=== PATIENT | female | born 1985 | race Caucasian/White ===

== ENCOUNTER 2022-11-01 13:55 | Emergency (ER) | payer OTHER ==
[~2022-11-01] VITALS: Ht 162.6 cm; Wt 79.4 kg
[~2022-11-01 13:55] MED LIST: CEFUROXIME250 MG PO; CIPRO500 MG; NAPROXEN500 M1; PEPCID40 MG PO
== END 2022-11-01 17:18 | disposition home or self-care (01) ==
LOC: ER 13:55
DX: U07.1 COVID-19 (principal); Z88.6 Allergy status to analgesic agent

== ENCOUNTER 2022-11-03 04:59 | Emergency (ER) | payer OTHER ==
[~2022-11-03] VITALS: Ht 162.6 cm; Wt 81.6 kg
== END 2022-11-03 16:56 | disposition home or self-care (01) ==
LOC: ER 04:59
DX: U07.1 COVID-19 (principal); R05.9 Cough, unspecified; J15.9 Unspecified bacterial pneumonia; R06.02 Shortness of breath

== ENCOUNTER → 2023-04-21 | Emergency (ER) | payer OTHER ==
[~2023-04-21] VITALS: Ht 160 cm; Wt 77.1 kg
== END | disposition home or self-care (01) ==
LOC: ER 00:12
DX: L02.32 Furuncle of buttock (principal); Z88.6 Allergy status to analgesic agent